=== PATIENT | female | born 2000 | race Caucasian/White ===

== ENCOUNTER 2025-05-13 08:32 | Emergency (ER) | payer OTHER, SELFPAY ==
[2025-05-13 08:47] VITALS: BP 114/77; PULSE 79; RESP 18; TEMP 36.2; O2SAT 98
--- NOTE | 2025-05-13 09:10 | ED_ITS ---
HPI - URI/Sore Throat General Chief Complaint: Urogenital-Female Stated Complaint: UTI SYMPTOMS Time Seen by Provider: 05/13/25 09:11 Source: patient Mode of arrival: ambulatory Limitations: no limitations History of Present Illness HPI Narrative: [age] year female presents with complaint of dysuria, frequency, urgency for 2 days. Has been taking [id number] azo since yesterday. Afebrile. No abdominal or back pain. Denies . All systems reviewed and negative except as noted above. Related Data Allergies Allergy/AdvReac Type Severity Reaction Status Date / Time No Known Allergies Allergy Verified 05/13/25 08:45 Review of Systems Review of Systems: CONSTITUTIONAL: Denies fever, chills, or sweats. EYES: Denies visual changes, redness, or discharge. ENT: Denies rhinorrhea, congestion, sore throat, or otalgia. CARDIOVASCULAR: Denies chest pain, palpitations, or edema. RESPIRATORY: Denies cough or dyspnea. GASTROINTESTINAL: Denies abdominal pain, nausea, vomiting, or diarrhea. GENITOURINARY: Reports dysuria, urgency, frequency. Denies hematuria. SKIN: Denies rash or itching. MUSCULOSKELETAL: Denies back pain, joint pain, or myalgia. NEUROLOGIC: Denies headache, numbness, or weakness. PSYCHIATRIC: Denies anxiety or depression. All other systems reviewed are negative, except as documented in HPI. PMFSH Comments At time of signature, agree with nursing past medical, surgical, social and family history. There is no relevant family history pertinent to the presenting complaint. Exam Narrative: GENERAL: This is a well-nourished, well-developed patient, in no apparent distress. HEAD: normocephalic, atraumatic. EYES: PERRL. Sclera clear/white. Vision is grossly intact. EARS: External ears normal NOSE: External nose normal NECK: Neck supple, non-tender without lymphadenopathy, masses or thyromegaly. CARDIOVASCULAR: Regular rate and rhythm without murmurs, gallops, or rubs. RESPIRATORY: Clear to auscultation. Breath sounds equal bilaterally. No wheezes, rales, or rhonchi. SKIN: warm, Dry, intact with no suspicious lesions or rash, good texture and turgor. NEURO: awake, alert, and oriented to person, place and time. There were no obvious focal neurologic abnormalities. EXTREMITIES: No joint tenderness, effusion, or edema noted. Course Course Level of Care: Express Care Visit Vital Signs Vital signs: Vital Signs Temperature 36.2 C L 05/13/25 08:47 Pulse Rate 79 05/13/25 08:47 Respiratory Rate 18 05/13/25 08:47 Blood Pressure 114/77 05/13/25 08:47 Pulse Oximetry 98 05/13/25 08:47 Temperature 36.2 C L 05/13/25 08:47 Pulse Rate 79 05/13/25 08:47 Respiratory Rate 18 05/13/25 08:47 Blood Pressure 114/77 05/13/25 08:47 Pulse Oximetry 98 05/13/25 08:47 Reviewed MDM - URI/Sore Throat MDM Narrative Medical decision making narrative: Unable to complete urinalysis today, patient's urine sample bright orange urine due to azo. Urine culture ordered. Explain this with patient. Will treat with antibiotic due to patient's symptoms. Patient is well-appearing, nontoxic. Discharge Plan Discharge Clinical Impression: Urinary tract infection Patient Disposition: Home Condition: Stable Instructions: Antibiotic Form, Urinary Tract Infection in Women (ED) Additional Instructions: Take antibiotic as prescribed until gone. Drink at least 64 oz of water a day. May continue to take [id number] azo as directed on packaging. You have severe pain, vomiting, fever go to the ER. Patient Language: Green[place]ic Prescriptions: New amoxicillin-pot clavulanate [Augmentin] 500-125 mg tablet 1 tablet PO BID 5 Days Qty: 10 0RF Follow-up/Referrals: Yessy,Danae [Other] Time of Disposition: 08:58
== END 2025-05-13 09:11 | disposition home or self-care (01) ==
PROVIDERS: Emergency Provider Nurse Practitioner Family
DX: N39.0 Urinary tract infection, site not specified (principal)
CPT/HCPCS: 87077; 87086; 87186; 99203; G0463